=== PATIENT | female | born 1960 | race Caucasian/White ===

== ENCOUNTER 2019-08-15 11:16 | Inpatient (IN) | payer OTHER ==
[2019-08-15 12:39] LABS: Amphetamine Screen,Urine Not Detected (NotDetected); Barbiturate Screen,Urine Not Detected (NotDetected); Benzodiazepines Screen,Urine Not Detected (NotDetected); Cocaine Screen,Urine Not Detected (NotDetected); Methadone Screen, Urine Not Detected (NotDetected); Opiate Screen,Urine Not Detected (NotDetected); Oxycodone Screen, Urine Not Detected (NotDetected); Phencyclidine Screen,Urine Not Detected (NotDetected); Tricyclic Antidepressant,Urine Not Detected (NotDetected); Urn Cannabinoid Scrn Not Detected (NotDetected)
[2019-08-15 13:53] LABS: Appearance,Urine Clear (Clear); Bilirubin,Urine Negative (Negative); Blood,Urine Negative (Negative); Color,Urine Yellow; Glucose,Urine (UA) Negative (Negative); Ketones,Urine Negative (Negative); Leukocyte Esterase,Urine Negative (Negative); Nitrite,Urine Negative (Negative); Protein,Urine Negative (Negative); Specific Gravity,Urine 1.017 (1.001-1.035); Urobilinogen,Urine <2.0 mg/dL (<2.0)
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
[2019-08-15] MEDS ORDERED: MAG HYDROX/AL HYDROX/SIMETH 30 ML CUP PO PRN (14:53)
[2019-08-15] MEDS ORDERED: LORazepam 1 MG TAB PO PRN (14:53)
[2019-08-15] MEDS ORDERED: MAGNESIUM HYDROXIDE 2,400 MG/10 ML CUP PO PRN (14:53)
[2019-08-15] MEDS ORDERED: LORazepam 2 MG/ML INJ IM PRN (17:51)
[2019-08-15] MEDS ORDERED: ZIPRASIDONE 20 MG VIAL IM PRN (17:52)
[2019-08-15] MEDS ORDERED: HALOPERIDOL LACTATE 5 MG/ML 1 ML VIAL IM PRN (17:53)
[2019-08-16 08:59] LABS: Basophils # (A) 0.1 k/uL (0-0.2); Basophils % (A) 1 %; Eosinophils # (A) 0.1 k/uL (0-0.7); Eosinophils % (A) 2 %; HCT 48.5 % (34.0-46.0); HGB 16.5 gm/dL (11.4-16.0); Lymphocytes # (A) 0.9 k/uL (1.0-4.8); Lymphocytes % (A) 13 %; MCH 31.3 pg (25.0-35.0); Mean Platelet Volume 7.3; Monocytes # (A) 0.3 k/uL (0-1.0); Monocytes % (A) 5 %; Neutrophils # (A) 5.5 k/uL (1.3-7.7); Neutrophils % (A) 79 %; Platelet Count 259 k/uL (150-450); RBC 5.28 m/uL (3.80-5.40); RDW 13.2 % (11.5-15.5)
[2019-08-16 09:19] LABS: ALT 28 U/L (9-52); AST 28 U/L (14-36); African American GFR (CKD) >90 (>60 ml/min/1.73 sqM); Albumin 4.3 g/dL (3.5-5.0); Alkaline Phosphatase 106 U/L (38-126); Anion Gap 13 mmol/L; Blood Urea Nitrogen 10 mg/dL (7-17); Calcium 9.9 mg/dL (8.4-10.2); Carbon Dioxide 21 mmol/L (22-30); Chloride 106 mmol/L (98-107); Cholesterol 243 mg/dL (<200); Glucose 153 mg/dL (74-99); HDL Cholesterol 58 mg/dL (40-60); LDL Cholesterol,Calculated 162 mg/dL (0-99); Potassium 3.9 mmol/L (3.5-5.1); Sodium 140 mmol/L (137-145); Total Bilirubin 1.4 mg/dL (0.2-1.3); Total Protein 7.5 g/dL (6.3-8.2); Triglycerides 116 mg/dL (<150)
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
[2019-08-16 19:11] LABS: Hemoglobin A1C 5.1 % (4.0-6.0)
[2019-08-16] MEDS: ARIPiprazole 10 MG TAB PO SCH (20:58)
[2019-08-17] MEDS: LEVOTHYROXINE 50 MCG TAB PO SCH ×2 (06:55→08:35)
[2019-08-17] MEDS: ACETAMINOPHEN TAB 325 MG TAB PO PRN (09:25)
--- NOTE | 2019-08-17 17:37 | P.PN ---
Progress Note - Text Progress Note Date: 08/17/19 59-year-old female who was admitted to the mental health unit for symptoms of mleida and psychosis. Patient was seen today. She was paranoid about being started on medications for hypothyroidism. She states thyroid medications give her brain swelling, bleeding/red eyes. She says no one in her family has thyroid problems. She reports good appetite and fair sleep. She reports going to all her groups. She denies current suicidal or homicidal ideations. She denies current auditory or visual hallucinations. Her speech and thought process are pressured, tangential with flight of ideas. Her mood is euthymic and affect constricted. She is alert and oriented x 4. Her insight and judgement are limited. She reports talking to her daily. No other problems reported. 1. Bipolar 1 disorder most recent manic with psychosis. II. History of hypothyroidism PLAN: second clinical certificate was completed. Contiue Abilify 10 mg at bedtime. Monitor symptoms
[2019-08-17] MEDS: ARIPiprazole 10 MG TAB PO SCH (20:08)
[2019-08-18] MEDS: LEVOTHYROXINE 50 MCG TAB PO SCH (07:19)
--- NOTE | 2019-08-18 17:42 | P.PN ---
Progress Note - Text Progress Note Date: 08/18/19 59-year-old female who was admitted to the mental health unit for symptoms of melida and psychosis. Patient was seen today. She stated she had not taken her prescribed medication for hypothyroidism. She is concerned about interaction between levothyroxine and abilify. She was hyperverbal and became tearful talking about why she is not allowed to talk to her friends. Her speech was pressured with flight if ideas. She states she has difficulty comprehending at times. She reports feeling frustrated about her inpatient hospital activities clashing with her personal routine on the unit and complains about not having window of oppurtunity to catch up on things. Appears her stated age in fair grooming and hygiene. No abnormal movements noted. She maintains poor eye contact. Her speech and thought process are tangential and disorganized. Mood is reported as good and affect constricted. Denies current auditory or visual hallucinations. She denies current paranoid ideations. She is alert and oriented x 4. She denies current suicidal or homicidal ideations. 1. Bipolar 1 disorder most recent manic with psychosis. II. History of hypothyroidism PLAN: second clinical certificate was completed. Contiue Abilify 10 mg at bedtime. Monitor symptoms
[2019-08-18] MEDS: ARIPiprazole 10 MG TAB PO SCH (20:20)
[2019-08-19] MEDS: LEVOTHYROXINE 50 MCG TAB PO SCH ×2 (06:24→06:28)
[2019-08-19 07:20] VITALS: RESP 18
--- NOTE | 2019-08-19 11:35 | P.PN ---
Progress Note - Text Interval history: The patient is found in her room she follows me to an interview room. She is reported to have slept 4 hours last evening. She has been eating. She has been selectively attending some group activity. She has spontaneous speech and speaks for several minutes uninterrupted demonstrating a tangential thought process loose associations and some flight of ideas. She continues to lack insight into her symptoms. It appears she complied with the Abilify with the last dose but is refusing the levothyroxine. I attempted to provide an explanation as to why that is being prescribed that she was intrusive and did not allow me to finish the explanation. Mental status exam: The patient is a morbidly obese female appearing her stated age. She stressor own clothing. Eye contact is appropriate speech is fluent spontaneous pressured at times. Affect varied she was mildly irritable at times. She demonstrates tangential thinking loose associations and flight of ideas. He continues to harbor some delusional thought content. She is reporting no suicidal or homicidal thoughts she is demonstrating no verbal or physical aggressiveness. She demonstrates no involuntary repetitive movements. Insight and judgment are impaired. Plan: Bipolar 1 disorder manic with psychosis, continue Abilify is written we will consider titrating the dose further. She is encouraged to comply with the levothyroxin. Vital signs reviewed. We will monitor for safety and encourage participation in the milieu. We are awaiting the deferral conference.
[2019-08-19] MEDS: ARIPiprazole 10 MG TAB PO SCH (20:25)
[2019-08-20] MEDS: LEVOTHYROXINE 50 MCG TAB PO SCH (07:56)
--- NOTE | 2019-08-20 09:22 | P.PN ---
Progress Note - Text Interval history: The patient is found in the hallway she follows me to an interview room. It appears that she met with her die holder and did not defer. She has again requested an independent medical exam. She reports that she slept throughout the night staff reported she slept 4 hours. She indicates her appetite stable. She will intermittently participate in some group activity. We attempted to review her recent blood pressure readings. They appeared to be more elevated lately. She did refuse blood pressure readings to the days that she has been here. She becomes argumentative and indicates she wants terminate the session early. She states she does not have high blood pressure and he is readings are due to increased stress and staff member standing over her when measurement is taken. We tried to review her medication she again becomes argumentative. Surprisingly she is complying with the Abilify at bedtime. Mental status exam: The patient is a morbidly obese female. Eye contact is appropriate. Speech is fluent and spontaneous she is pressured. She continues to demonstrate a disorganized thought process with ongoing spontaneous speech. She becomes tangential and demonstrates loose associations. Very briefly she is able to answer questions in a linear fashion. Although she denies having any symptoms she spontaneously conveys feelings of paranoia. She indicates that she felt stressed with the staff member standing over her to take her blood pressure. She continues to feel that she has been wrongly admitted to the hospital. She describes feelings of contention between her and I during our conversation. Insight is impaired judgment is subsequently impaired. She is reporting no suicidal or homicidal thoughts. She demonstrates no involuntary repetitive movements. She does bring in belongings with her to the session she frequently moves them throughout the session. Plan: The patient requires continued psychiatric hospitalization. She has requested an independent medical exam. Surprisingly she is complying with the Abilify. I will titrate the dose further to 15 mg at bedtime. We are using that medication to stabilize her mood and reduce symptoms of psychosis. I will ask nursing to recheck her blood pressure later today if she is cooperative. She is encouraged to participate in the milieu. We will monitor her for safety. Social work has been trying to gain collateral information from her but he has not been reachable so far.
[2019-08-20] MEDS: ARIPiprazole 15 MG TAB PO SCH (20:06)
[2019-08-21] MEDS: LEVOTHYROXINE 50 MCG TAB PO SCH (06:24)
--- NOTE | 2019-08-21 10:19 | P.PN ---
Progress Note - Text Interval history: The patient is found in the hallway she follows me to an interview room. She states things are going fine. She states that she is experiencing bruising on her leg and swelling of her hands. There is no observed edema of her hands. She has been complying with the Abilify. Questions regarding that medication were addressed. She reports that she slept throughout the night staff reported she slept 5 hours. She indicates her appetite stable. She indicates she has been attending groups. Mental status exam: The patient is an obese female appearing her stated age. She is in the hallway carrying a sheet and several items of her clothing. She is seated in the chair briefly. She terminates the session prematurely. She continues to demonstrate disorganization of her thought process. She continues to feel that she was inappropriately admitted to the hospital. She continues to have some delusional thought content. She demonstrates no verbal or physical aggressiveness. She demonstrates no involuntary repetitive movements. She does have some increased psychomotor activity and she is constantly fidgeting with her belongings or changing position in her chair. Insight and judgment limited. The session was terminated before we could do any cognitive testing's morning. She reports no suicidal or homicidal thoughts. Plan: The patient will continue on her current psychotropic medication. Fortunately she has been complying with the Abilify. However she is refusing the levothyroxin she does have a known history of hypothyroidism. We will continue to monitor her for safety she is encouraged to participate in the milieu appropriately. Vital signs reviewed. Blood pressure readings are not ideal but reduced from yesterday morning. Continue to monitor vital signs. She requires continued psychiatric hospitalization and treatment.
[2019-08-21] MEDS: ARIPiprazole 15 MG TAB PO SCH (20:35)
[2019-08-22] MEDS: LEVOTHYROXINE 50 MCG TAB PO SCH (07:07)
[2019-08-22] MEDS: ACETAMINOPHEN TAB 325 MG TAB PO PRN (11:50)
--- NOTE | 2019-08-22 11:59 | P.PN ---
Progress Note - Text Interval history: The patient is found in the hallway she follows me to an interview room. She indicates she slept about 6 hours last evening. She has no questions or concerns regarding the Abilify. She did comply with medication last evening. She has been attending groups. Staff reports she continues to demonstrate disorganization of thought. Mental status exam: The patient is alert she's overweight female appearing her stated age she is dressed in her own clothing hygiene grooming adequate. Speech is fluent spontaneous she demonstrates thought disorganization. She does better with being directed in the session today compared to previous days. Insight and judgment still limited. She reports no suicidal or homicidal ideation. Her thought disorganization still seems to cause some psychosocial dysfunction. She demonstrates no involuntary repetitive movements. Plan: We will continue the Abilify as written. We will monitor for signs of medication efficacy. We will monitor for any side effects. Vital signs reviewed. She requires continued hospitalization for stabilization of her thought process. She is encouraged to continue participating in the milieu we will monitor for safety.
[2019-08-22] MEDS: ARIPiprazole 15 MG TAB PO SCH (20:47)
[2019-08-23] MEDS: LEVOTHYROXINE 50 MCG TAB PO SCH (06:23)
--- NOTE | 2019-08-23 11:00 | P.PN ---
Progress Note - Text Interval history: The patient is found in her room she follows me to an interview room. She has just returned from court. We will verify with the court but it seems she may has stipulated to a treatment order. She complied with the Abilify last evening. She has been selectively attending groups. Staff report that she has been more reserved in group. The patient has no questions or concerns today regarding her medications. She is able to describe the conditions of a treatment order and feels she can adhere to those. She reports appetite stable she indicates she slept 4-5 hours last night. Mental status exam: The patient is an obese female appearing her stated age. She is dressed in her own clothing. Eye contact is appropriate. Speech is fluent spontaneous nonpressured. Affect is expansive today. She is reporting no suicidal or homicidal thoughts. She endorses no auditory or visual hallucinations. She is reserved during the session. She denies having any symptoms of psychosis but obviously may be underreporting. She is animated with speech but demonstrates no verbal or physical aggressiveness. Insight and judgment limited. She demonstrates no involuntary repetitive movements. Plan: The patient will continue on her current psychotropic medication. We will verify that she stipulated to a treatment order. We will monitor her for safety. She may be demonstrating some mild clinical improvement in terms of thought process. She was more easily directable today. We will monitor her for safety and encourage full participation in the milieu. Vital signs reviewed.
[2019-08-23] MEDS: ARIPiprazole 15 MG TAB PO SCH (20:54)
[2019-08-24] MEDS: LEVOTHYROXINE 50 MCG TAB PO SCH (06:03)
[2019-08-24 06:13] LABS: Glucose,Whole Blood 95 mg/dL (75-99)
--- NOTE | 2019-08-24 11:04 | P.PN ---
Progress Note - Text Interval history: The patient is found in the hallway she follows me to an interview room. She indicates her mood is okay he feels sad that she may have hurt another patient's feelings. She states the group was especially good today and that has brightened her mood. Staff recorded she slept 5 hours. She indicates appetite stable. We discussed her psychotropic medications. She is agreeable to continuing Abilify. Mental status exam: The patient is alert she's cooperative she is pleasant. She remained seated in the chair until we are finished. She is dressed in the same clothing hygiene grooming adequate. Speech is fluent and spontaneous nonpressured. She does still demonstrate some disorganization of thought. She reports no suicidal or homicidal ideation. She endorses no symptoms of psychosis but there may be some delusional thought content under reported. She demonstrates no verbal or physical aggressiveness she demonstrates no involuntary movements. Plan: The patient will continue on her current psychotropic medications. We will consider titrating the Abilify further. He continues to refuse the levothyroxine. Vital signs reviewed. She requires continued hospitalization for psychiatric evaluation and treatment.
[2019-08-24] MEDS: ARIPiprazole 15 MG TAB PO SCH (20:19)
[2019-08-25] MEDS: LEVOTHYROXINE 50 MCG TAB PO SCH (06:34)
--- NOTE | 2019-08-25 13:33 | P.PN ---
Progress Note - Text Interval history: The patient is found in the dining room she follows me to an interview room. She indicates she had a stressful evening last night. After visiting she had thoughts that one of the nurses was flirting with her . She felt the nurse unnecessarily followed him out into the hallway. She states that she journaled afterwords in order to process the situation further. She indicates that there are actually 4 nurses that she is uncomfortable with that may inappropriately interact with her . We reviewed her psychotropic medication. We discussed titrating the Abilify further. Mental status exam: The patient is an obese female appearing her stated age. She stressor own clothing hygiene grooming adequate. She is cooperative wasn't and directable. Thought process is becoming more organized. She is however describing paranoid thinking today and last evening. She reports no suicidal or homicidal ideation. She demonstrates no pressured speech she demonstrates no verbal or physical aggressiveness. Insight and judgment limited. She is oriented to person place and date. She demonstrates no involuntary repetitive movements. Plan: The patient will continue on the Abilify we will titrate to 20 mg daily. We will monitor her for safety and encourage participation in the milieu. She is starting to make some mild progress in terms of thought organization we will monitor symptoms of psychosis. She requires continued psychiatric hospitalization.
[2019-08-26] MEDS: LEVOTHYROXINE 50 MCG TAB PO SCH (06:25)
--- NOTE | 2019-08-26 10:55 | P.PN ---
Progress Note - Text Interval history: The patient is found in her room she follows me to an interview room. She indicates that she has been staying in her room and writing. She reports having a visit from her last evening and that was supportive. She has no questions or concerns regarding the Abilify. She states that she woke up feeling heavy and that only lasted for an hour. Appetite stable. Staff reported she slept approximate 5 hours. She did read two pages of her journaling to me during the session. Mental status exam: The patient is an obese female appearing her stated age. She is dressed in a hospital gown with a housedress over top. She is cooperative. She reports her mood is fine. Affect is constricted. She re ports no thoughts of self-harm or harm to others. She is endorsing no auditory or visual hallucinations. She reports no specific delusions but as recent as this weekend she described paranoid thinking involving one of the nurses. Thought process can be tangential at times. She demonstrates no verbal or physical aggressiveness. Insight and judgment limited. She is oriented to person place and date. She demonstrates no involuntary repetitive movements. Plan: The patient will continue on the Abilify we have just titrated the dose. We will monitor her for safety and encourage participation in the milieu. Social work has been attempting to contact her to get collateral information. He has visited over the weekend twice so it would be beneficial to get his opinion as to how the patient is approximating her baseline function. We will continue to monitor for safety. Vital signs reviewed. She is encouraged to reengage in groups.
[2019-08-27] MEDS: LEVOTHYROXINE 50 MCG TAB PO SCH (06:58)
--- NOTE | 2019-08-27 10:23 | P.PN ---
Progress Note - Text Interval history: The patient is found in her room she follows me to an interview room. She indicates her mood is okay. We discussed her lack of participation in groups. She states that sometimes a drain her energy but she is willing to increase her participation. We discussed the importance of the groups in terms of not only treatment but the evaluation process. She states that she feels she is acclimating to the Abilify. She did experience some feelings of tiredness this morning but it was better than yesterday. She has no other concerns. Vital signs reviewed. Appetite stable. She continues to journal and will read me a portion of that. She spent several minutes discussing one of her peers on the mental health unit and how she is trying to interact with her. Mental status exam: The patient is a morbidly obese female appearing her stated age. She was pleasant and cooperative. She was easily directable. She has appropriate eye contact. Speech is fluent and spontaneous she is verbose. She does demonstrate some tangential thinking. She is reporting no suicidal or homicidal thoughts. She reports no auditory or visual hallucinations or specific delusions however delusional thinking may persist. Just this past Monday she demonstrated paranoid thinking. She demonstrates no verbal or physical aggressiveness. She demonstrates no involuntary repetitive movements. She remains oriented to person place and date. Plan: The patient will continue on her current psychotropic medication. We will monitor her for safety and encourage improved participation in the milieu. Vital signs reviewed. She requires continued psychiatric hospitalization.
[2019-08-27] MEDS: ACETAMINOPHEN TAB 325 MG TAB PO PRN (12:00)
[2019-08-28] MEDS: LEVOTHYROXINE 50 MCG TAB PO SCH (06:05)
[2019-08-28] MEDS: ACETAMINOPHEN TAB 325 MG TAB PO PRN (09:02)
--- NOTE | 2019-08-28 09:51 | P.PN ---
Progress Note - Text Interval history: The patient is found in the hallway she follows me to an interview room. She indicates she is doing well. She states she slept about 6- 7 hours staff reported the same. She indicates appetite is stable. She has no questions or concerns regarding the [facility]. Again we discussed that we would want to transition her to [facility]. She states that she has spoken her via phone and that has been supportive. Social work was finally able to reach her and from documentation it appears he has no concerns about the patient returning home. Mental status exam: The patient is a morbidly obese female appearing her stated age. She is dressed in her own clothing hygiene grooming adequate. Eye contact is appropriate speech is fluent spontaneous nonpressured. She denies having any suicidal or homicidal ideation intent or plan. She is reporting no auditory or visual hallucinations or any specific delusions. She demonstrates no verbal or physical aggressiveness. Thought process is becoming more linear. She demonstrates no loose associations or flight of ideas, tangential thinking is improving. She is suspected to have some chronic paranoid thoughts but she is not revealing that as readily compared to when she was first admitted. She demonstrates no abnormal involuntary movements. She remains oriented to person place and date. Plan: The patient will continue on her current psychotropic medication. We will plan to transition her [facility] soon. We will monitor her for safety and continue to encourage full participation in the milieu. We'll discuss her progress during treatment team meeting. Vital signs reviewed.
[2019-08-28 15:34] VITALS: BMI 48.7
[2019-08-28] MEDS ORDERED: guaiFENesin 600 MG TABLET.ER PO PRN (16:10)
[2019-08-29] MEDS: LEVOTHYROXINE 50 MCG TAB PO SCH (06:28)
[2019-08-29 06:35] VITALS: BP 136/81; PULSE 107; TEMP 98.6
[2019-08-29] MEDS ORDERED: LORATADINE 10 MG TAB PO SCH (09:00)
--- NOTE | 2019-08-29 10:27 | P.DS ---
Providers Date of admission: 08/15/19 14:46 Expected date of discharge: 08/29/19 Attending physician: Bib Coello Consults: 08/15/19 14:53 Consult Physician Routine Consulting Provider: Catherine Tran Consult Reason/Comments: follow up admission H & P Do you want consulting provider notified?: Yes Primary care physician: Nu Dexter - Discharge Diagnosis(es) (1) Severe manic bipolar 1 disorder with psychotic behavior Current Visit: Yes Status: Acute Priority: High Hospital Course: Brief summary of admission note: This patient is a 59-year-old female who was admitted to the mental health unit for symptoms of melida and psychosis. The patient was petition by her daughter stating the patient was not on any medication she was demonstrating symptoms of paranoia. She had been physically aggressive towards her spouse. Upon presentation the patient demonstrated acute disorganization of thought including tangential thinking loose associations and flight of ideas. She did describe paranoid and persecutory thinking. For full details please refer to my psychiatric evaluation dated 08/16/2019. Summary of hospital course: The patient was admitted to the mental health unit in voluntarily. A second clinical certificate was completed. She had met with her banking attorney during the deferral conference and did not defer and she requested an independent medical exam. A subsequent court date was scheduled and at the court the patient stipulated to a treatment order. We did start her on Abilify and the dosage was titrated to 20 mg daily. She is selectively attended group. Over the course of her hospitalization she did demonstrate improvement in terms of thought process. She became much more directable pleasant and cooperative. Social work made numerous attempts to reach her . Finally she did make contact with her and he stated that the patient never required admission and he was comfortable with her returning home. The patient did not allow us to contact any other family members including the petitioner. The patient was seen by internal medicine for routine history and physical exam. It was recommended that she go on levothyroxine but the patient refuses to take that medication. Mental status exam: The patient is a morbidly obese female appearing her stated age. She is dressed in her own clothing hygiene grooming adequate. Speech is fluent spontaneous nonpressured. She indicates her mood is good she is reporting no hopelessness thinking she reports no suicidal ideation intent or plan. She reports no homicidal ideation intent or plan. She never reported any thoughts during this hospitalization of wanting to harm her or any other family member. She is reporting no auditory or visual hallucinations or any specific delusions. There may be some residual paranoid thinking still present that she is underreporting. Affect is pleasant cooperative and appropriately reactive. Thought process is much improved she demonstrates no tangential thinking loose associations or flight of ideas. She is oriented to person place and date. She demonstrates future oriented thinking. She demonstrates no verbal or physical aggressiveness she demonstrates no involuntary repetitive mov ements. Impressions 1. Bipolar 1 disorder most recent manic with psychosis 2. Hypothyroidism. Plan: The patient will be discharged mental health unit today to return home residing with her . She will most likely follow up with [facility]. She has stipulated to a treatment order and we discussed the responsibilities that she has regarding this order and the consequences of not following the order. She will continue on Abilify 20 mg daily for 14 days then discontinue she will receive Abilify maintena 400 mg IM today. She is instructed to abstain from any use of alcohol or illicit drugs. At this time there is no imminent safety risk she is appropriate for transition back to outpatient care. She is instructed to return to the hospital any acute safety concerns. Patient Condition at Discharge: Stable Plan - Discharge Summary New Discharge Prescriptions: New ARIPiprazole [Abilify] 20 mg PO HS #14 tab ARIPiprazole IM [Abilify Maintena] 400 mg IM ONCE #1 vial Levothyroxine Sodium [Synthroid] 50 mcg PO DAILY@0630 #30 tab Discharge Medication List ARIPiprazole IM [Abilify Maintena] 400 mg IM ONCE #1 vial 08/29/19 [Rx] ARIPiprazole [Abilify] 20 mg PO HS #14 tab 08/29/19 [Rx] Levothyroxine Sodium [Synthroid] 50 mcg PO DAILY@0630 #30 tab 08/29/19 [Rx] Follow up Appointment(s)/Referral(s): [facility] [Outside] - 09/04/19 6:30 pm (pt was a no show 2 times if she does not show for this appointment [facility] will not be able to see her going forward Please call prior to appointment with insurance subscriber social security number. If appointment time does not work please call to reschedule) Nu Dexter MD [Primary Care Provider] - 1-2 days Activity/Diet/Wound Care/Special Instructions: Activity and diet as tolerated. No guns or weapons in the home. Refrain from alcohol and street drugs not prescribed by your physician. If in need of medication refills, please go to your primary care physician, or to your out patient psychiatric provider. Please take all medications as prescribed, and attend all after care appointments as scheduled. If in crisis, please call , or go the nearest ER for an evaluation.
[2019-08-29] MEDS ORDERED: ARIPiprazole IM 400 MG VIAL (NO COST) IM ONE (10:30)
[2019-08-29] MEDS ORDERED: RICOLA COUGH DROPS PO PRN (15:12)
== END 2019-08-29 15:16 | disposition home or self-care (01) | DRG 885 ==
LOC: EC 11:16 → 3MHU 14:46
PROVIDERS: ADMIT Psychiatry & Neurology Psychiatry; ATTEND Psychiatry & Neurology Psychiatry
DX: F31.2 Bipolar disorder, current episode manic severe with psychotic features (principal); Z68.42 Body mass index [BMI] 45.0-49.9, adult; R45.851 Suicidal ideations; E03.9 Hypothyroidism, unspecified; E66.01 Morbid (severe) obesity due to excess calories; Z80.41 Family history of malignant neoplasm of ovary; Z81.8 Family history of other mental and behavioral disorders; Z83.3 Family history of diabetes mellitus; Z81.1 Family history of alcohol abuse and dependence; Z80.1 Family history of malignant neoplasm of trachea, bronchus and lung; Z80.0 Family history of malignant neoplasm of digestive organs; Z83.2 Family history of diseases of the blood and blood-forming organs and certain disorders involving the immune mechanism; G43.909 Migraine, unspecified, not intractable, without status migrainosus; J45.909 Unspecified asthma, uncomplicated; Z88.0 Allergy status to penicillin; Z88.2 Allergy status to sulfonamides; Z88.8 Allergy status to other drugs, medicaments and biological substances
CPT/HCPCS: 80053; 80061; 80306; 81003; 82075; 83036; 84443; 85025; 99285

== ENCOUNTER → 2019-11-22 | Outpatient (CLI) | payer OTHER ==
--- NOTE | 2019-11-25 13:10 | MM ---
Reason for exam: screening (asymptomatic). Last mammogram was performed 3 years ago. Physical Findings: A clinical breast exam by your physician is recommended on an annual basis and results should be correlated with mammographic findings. MG 3D Screening Mammo W/Cad Bilateral CC and MLO view(s) were taken. Prior study comparison: November 10, 2016, mammogram. November 09, 2015, mammogram. February 02, 2005, bilateral screening mammogram. June 18, 2003, bilateral screening mammogram. There are scattered fibroglandular densities. No suspicious abnormality. No significant changes when compared with prior studies. ASSESSMENT: Negative, BI-RAD 1 RECOMMENDATION: Routine screening mammogram of both breasts in 1 year.
== END | disposition home or self-care (01) ==
LOC: RADMAMWWP 08:42
PROVIDERS: ATTEND Obstetrics & Gynecology
DX: Z12.31 Encounter for screening mammogram for malignant neoplasm of breast (principal)
CPT/HCPCS: 77063; 77067

== ENCOUNTER → 2021-01-15 | Outpatient (CLI) | payer OTHER ==
--- NOTE | 2021-01-19 08:52 | MM ---
Reason for exam: screening (asymptomatic). Last mammogram was performed 1 year and 2 months ago. History: Patient is postmenopausal. Physical Findings: A clinical breast exam by your physician is recommended on an annual basis and results should be correlated with mammographic findings. MG 3D Screening Mammo W/Cad Bilateral CC and MLO view(s) were taken. Prior study comparison: November 22, 2019, bilateral MG 3d screening mammo w/cad. November 10, 2016, mammogram. There are scattered fibroglandular densities. There is chronic nodularity bilaterally. No significant changes when compared with prior studies. ASSESSMENT: Negative, BI-RAD 1 RECOMMENDATION: Routine screening mammogram of both breasts in 1 year.
== END | disposition home or self-care (01) ==
LOC: RADMAMWWP 16:39
PROVIDERS: ATTEND Family Medicine
DX: Z12.31 Encounter for screening mammogram for malignant neoplasm of breast (principal)
CPT/HCPCS: 77063; 77067